=== PATIENT | female | born 1950 | race Native Hawaiian/Other Pacific Islander ===

== ENCOUNTER 2022-10-05 10:02 | Outpatient (CLI) | payer OTHER ==
[~2022-10-05] VITALS: Ht 172.7 cm; Wt 81.6 kg
[2022-10-05 10:30] LABS: PLATELET COUNT 404 K/uL (152-353)
== END 2022-10-05 22:54 | disposition home or self-care (01) ==
LOC: CT 10:02
PROVIDERS: ATTEND Physician Assistant
DX: M54.6 Pain in thoracic spine (principal); M54.12 Radiculopathy, cervical region; R79.1 Abnormal coagulation profile
CPT/HCPCS: 36415; 85027; 85610; 85730; Q9963